=== PATIENT | female | born 1940 | race Caucasian/White ===

== ENCOUNTER 2016-12-06 10:32 | Emergency (ER) | payer MEDICARE, OTHER ==
[~2016-12-06] VITALS: Ht 157.5 cm; Wt 82.0 kg
[2016-12-06 10:37] VITALS: Ht 157.5 cm; Wt 82.0 kg
[2016-12-06 11:40] LABS: URINE BLOOD (Dip) POC 1+ (NEGATIVE)
[2016-12-06] MEDS ORDERED: GABA100C14 PO (12:00)
[2016-12-06] MEDS ORDERED: NITR-58 PO (12:01)
--- NOTE | 2016-12-06 12:17 | ERD ---
ER Documentation Chief Complaint Date/Time DATE: 12/06/16 TIME: 12:09 Chief Complaint left lumbar pain x 1.5 years HPI Patient is a 76 year female with a past medical history of diabetes, hypertension, hyperlipidemia, hypothyroidism, shingles, who presents emergency department with left-sided lumbar pain 1.5 years. Patient's daughter is present. Patient's daughter states the patient was had numerous diagnoses of shingles including to her left lumbar region. She denies any radiation of the pain. Patient does report going to numerous outside hospitals and clinics who have told her that she has shingles related pain. Patient does have slight residual lesions. Patient denies any fevers, chills, nausea, vomiting, chest pain, shortness of breath, headache, blurry vision or LOC. Patient denies any recent falls or trauma. Patient does ambulate with a walker. Patient does admit to urinary frequency however she denies any dysuria, urgency or hematuria. Patient denies any saddle anesthesia, urinary incontinence, stool incontinence or night pain. She denies taking any medication at this time for her pain. ROS All systems reviewed and are negative except as per history of present illness. Medications Home Meds Active Scripts Nitrofurantoin Monohyd Macrocr* (Macrobid*) 100 Mg Capsr, 100 MG PO BID for 5 Days, CAP Prov:FREDIS REINA PA-C 12/06/16 Gabapentin* (Gabapentin*) 100 Mg Capsule, 100 MG PO TID, #30 CAP Prov:FREDIS REINA PA-C 12/06/16 Allergies Allergies: Coded Allergies: acetaminophen (Verified Allergy, Intermediate, SOB, 12/06/16) hydrocodone (Verified Allergy, Intermediate, SOB, 12/06/16) PMhx/Soc History of Surgery: Yes (tummy tuck, gallbladder surgery; eye surgery; shoulder surgery) Anesthesia Reaction: No Hx Neurological Disorder: No Hx Respiratory Disorders: No Hx Cardiac Disorders: Yes (hypertension) Hx Miscellaneous Medical Probl: Yes (diabetes;mellitus; thyroid problems) Hx Alcohol Use: No Hx Substance Use: No Hx Tobacco Use: No Smoking Status: Never smoker FmHx Family History: diabetes Physical Exam Vitals Vital Signs Date Time Temp Pulse Resp B/P Pulse Ox O2 Delivery O2 Flow Rate FiO2 12/06/16 12:19 98.4 64 20 170/77 98 Room Air 12/06/16 10:37 98.6 62 20 184/77 98 Physical Exam GENERAL: Well-developed, well-nourished female. Appears in no acute distress. HEAD: Normocephalic, atraumatic. EYES: Pupils are equally reactive bilaterally. EOMs grossly intact. No conjunctival erythema. ENT: Moist mucous membranes. No uvula deviation. No kissing tonsils. NECK: Supple. No meningismus. Normal range of motion of the neck. LUNG: Clear to auscultation bilaterally. No rhonchi, wheezing, rales or coarse breath sounds. HEART: Regular rate and rhythm. No murmurs, rubs or gallops. ABDOMEN: Soft, nontender, and nondistended. Positive bowel sounds in all four quadrants. No rebound tenderness, no guarding. (-) McBurney's point tenderness. No CVA tenderness. BACK: No midline tenderness. Slightly erythematous, scabbed lesions noted to the patient's left lumbar region. EXTREMITIES: Equal pulses bilaterally. No peripheral clubbing, cyanosis or edema. No unilateral leg swelling. NEUROLOGIC: Alert and oriented. Moving all four extremities without any difficulty. Normal speech. Steady gait with walker. SKIN: Normal color. Warm and dry. No rashes or lesions. Results 24 hrs Laboratory Tests Test 12/06/16 11:44 Bedside Urine pH (LAB) 5.5 Bedside Urine Protein (LAB) Negative Bedside Urine Glucose (UA) Negative Bedside Urine Ketones (LAB) Negative Bedside Urine Blood 1+ Bedside Urine Nitrite (LAB) Negative Bedside Urine Leukocyte Esterase (L Trace Procedures/MDM MEDICAL DECISION MAKING: This is a 76-year-old female with a history of hypertension, diabetes, hyperlipidemia, hypothyroidism, shingles presents with left lumbar pain 1.5 months. Patient does report numerous shingles outbreaks to the affected region. Patient also did report urinary frequency. Vital signs were reviewed. Patient was afebrile. Patient denied any saddle anesthesia, urinary incontinence , bowel incontinence, night pain or recent trauma. The patient denied any recent falls or trauma, x-ray imaging was not obtained today. Physical exam findings did show scabbed lesions consistent with previous shingles outbreaks to the affected region. Urine dip showed trace leukocyte esterase, 1+ hematuria. Patient is complaining of frequency, I will treat the patient with a course of antibiotics at this time. Given these findings, the patient's presentation is most consistent with postherpetic neuralgia and UTI. I have a much lower clinical concern for cauda equine syndrome, spinal fractures, epidural abscess, spinal metastases, osteomyelitis, sciatica, pyelonephritis or nephrolithiasis. PRESCRIPTIONS: Gabapentin, Macrobid DISCHARGE: At this time, patient is stable for discharge and outpatient management. Ice versus heat advised to the affected area. I have instructed the patient to follow-up with his/her primary care physician in 1-2 days. I have discussed with the patient the possibility of needing to see an social problems specialist for further workup and imaging if the pain persists. I have instructed the patient to promptly return to the ER for any new or worsening symptoms including increased pain, swelling, warmth, urinary incontinence, stool incontinence, weakness or numbness. The patient and/or family expressed understanding of and agreement with this plan. All questions were answered. Home care instructions were provided. Patient's blood pressure was elevated (>120/80) but appears stable without evidence of hypertensive emergency, hypertensive urgency or end-organ failure. I had discussion with the patient about the risks of hypertension. I have advised the patient to follow up with his/her primary care physician for outpatient monitoring and treatment for hypertension in 2-3 days. I have instructed the patient to return to the ER for any new or worsening symptoms including chest pain, shortness of breath, headache, blurred vision, confusion, nausea, vomiting or LOC. Patient denied taking BP medication this morning, Patient advised to take medication MALLORIE upon returning home. Departure Diagnosis: Primary Impression: Neuralgia, post-herpetic Additional Impression: UTI (urinary tract infection) Urinary tract infection type: site unspecified Hematuria presence: with hematuria Qualified Code: N39.0 - Urinary tract infection with hematuria, site unspecified Condition: Stable Patient Instructions: Understanding Urinary Tract Infections (UTIs), Shingles ( Herpes Zoster) [facility] Usted se jones hecho un examen mdico de control que le indica que no est en geovanna condicin que requiera tratamiento urgente en el Departamento de Emergencia. Un estudio ms profundo y el tratamiento de alvarenga condicin pueden esperar sin ningn riesgo hasta que usted sea atendida/o en el consultorio de alvarenga mdico o geovanna cl bakari. Es responsabilidad suya arreglar geovanna matthew para el seguimiento del abilio. MANEJO DE CONDICIONES NO URGENTES EN EL FUTURO 1) Si usted tiene un mdico de atencin primaria: Usted debera llamar a alvarenga mdico de atencin primaria antes de venir al departamento de emergencia. Despus de las horas de consultorio, alvarenga doctor o alvarenga asociado/a est disponible por telfono. El mdico o enfermero de reba en el servicio telefnico puede asesorarle por pj medio para atender el problema, o abilio contrario se puede programar geovanna matthew. 2) Si usted no tiene un mdico de atencin primaria: Llame al mdico o clnica de referencia que aparece abajo micki las horas de consultorio para hacer geovanna matthew para que le vean. CLINICAS: [facility] [phone] [address] [facility] [facility] [phone] [address] [facility] [facility] [phone] [facility]. [facility] [phone] [facility]. [place] [id number] [phone] [facility]. [phone] [facility] () Usted se jones hecho un examen mdico de control que le indica que no est en geovanna condicin que requiera tratamiento urgente en el Departamento de Emergencia. Un estudio ms profundo y el tratamiento de alvarenga condicin pueden esperar sin ningn riesgo hasta que usted sea atendida/o en el consultorio de alvarenga mdico o geovanna cl bakari. Es responsabilidad suya arreglar geovanna matthew para el seguimiento del abilio. MANEJO DE CONDICIONES NO URGENTES EN EL FUTURO 1) Si usted tiene un mdico de atencin primaria: Usted debera llamar a alvarenga mdico de atencin primaria antes de venir al departamento de emergencia. Despus de las horas de consultorio, alvarenga doctor o alvarenga asociado/a est disponible por telfono. El mdico o enfermero de reba en el servicio telefnico puede asesorarle por pj medio para atender el problema, o abilio contrario se puede programar geovanna matthew. 2) Si usted no tiene un mdico de atencin primaria: Llame al mdico o condado institucions de referencia que aparece abajo micki las horas de consultorio para hacer geovanna matthew para que le vean. SI USTED NO PUEDE PAGAR PARA EMILEE UN MEDICO puede ir a: [facility] [id number] [place] [address] [facility] [address] [place] [address] [facility] [address] [place] [address] PARA [facility]KY [facility] [address] [place], [place] [id number] Additional Instructions: Llame al doctor MAANA y radha geovanna MATTHEW PARA DENTRO DE 2-3 KELLY.Dgale a la secretaria que nosotros le instruimos hacer esta matthew.Avise o llame si alvarenga condicin se empeora antes de la matthew. Regresa aqui si peor o no mejor. FREDIS REINA PA-C Dec 06, 2016 12:17
[2016-12-06 12:19] VITALS: BP 170/77; PULSE 64; RESP 20; TEMP 98.4
== END 2016-12-06 12:19 | disposition home or self-care (01) ==
LOC: FTE 10:32
DX: B02.29 Other postherpetic nervous system involvement (principal); N39.0 Urinary tract infection, site not specified; I10 Essential (primary) hypertension; E11.9 Type 2 diabetes mellitus without complications; E03.9 Hypothyroidism, unspecified
CPT/HCPCS: 81003; 99284